=== PATIENT | male | born 1960 | race Caucasian/White ===

== ENCOUNTER 2019-01-13 15:32 | Inpatient (IN) ==
[2019-01-13] MEDS ORDERED: ACETAMINOPHEN 325 MG TABLET PO PRN (17:43)
[2019-01-13] MEDS ORDERED: PNEUMOCOCCAL VACCINE (23 VALENT) 0.5 ML VIAL IM ONE (17:43)
[2019-01-13] MEDS ORDERED: ALBUTEROL 2.5 MG/3 ML NEB RESP TX PRN (17:43)
[2019-01-13] MEDS ORDERED: ONDANSETRON 4 MG/2 ML VIAL IV PRN (17:43)
[2019-01-13 18:15] LABS: Basophils # 0.1 10*3/uL (0.0-0.2); Basophils % 0.6 % (0.0-0.8); Eosinophils # 0.3 10*3/uL (0.0-0.87); Eosinophils % 2.8 % (0.00-10.9); Hematocrit 39.4 VOL% (42.0-52.0); Hemoglobin 12.3 GM/DL (14.0-18.0); Immature Granulocytes % 0.6 %; Immature Granulocytes Absolute 0.06 #; Lymphocytes # 2.2 10*3/uL (1.4-4.0); Lymphocytes % 22.4 % (21.2-54.2); Mean Corpuscular HGB Conc 31.2 GM/DL (32-36); Mean Corpuscular Volume 96.3 FL (87-102); Mean Platelet Volume 11.8 FL (9.6-12.0); Neutrophils % 65.6 % (38.7-73.9); Platelet Count 205 T/CUMM (130-400); Red Blood Count 4.09 MC/CUMM (3.8-5.5); Red Cell Distribution Width 14.4 % (9.3-17.3)
[2019-01-13] MEDS: CLINDAMYCIN 300 MG CAPSULE PO SCH (18:31)
[2019-01-13] MEDS ORDERED: HydrOXYzine PAMOATE 50 MG CAPSULE PO PRN (18:32)
[2019-01-13 18:37] LABS: Alanine Aminotransferase 22 U/L (16-61); Albumin 3.3 G/DL (3.4-5.0); Alkaline Phosphatase 211 U/L (45-117); Aspartate Amino Transferase 15 U/L (0-37); Bilirubin,Total < 0.39 MG/DL (0.2-1.0); Blood Urea Nitrogen 10 MG/DL (7-18); Calcium 10.3 MG/DL (8.5-10.1); Glucose 91 MG/DL (74-106); Osmolality,Calculated 273.7 MOS/KG (273-304); Total Protein 6.5 G/DL (6.4-8.3)
[2019-01-13] MEDS: ALBUTEROL/IPRATROPIUM 3 ML NEB RESP TX SCH (19:03)
[2019-01-13] MEDS: MORPHINE ER 15 MG TABLET PO SCH (20:12)
[2019-01-13] MEDS: AMITRIPTYLINE 100 MG TABLET PO SCH (20:13)
[2019-01-13] MEDS: CILOSTAZOL 100 MG TABLET PO SCH (20:13)
[2019-01-13] MEDS: levETIRAcetam 500 MG TABLET PO SCH (20:13)
[2019-01-13] MEDS: GABAPENTIN 600 MG TABLET PO SCH (20:13)
[2019-01-13] MEDS: MEROPENEM 1,000 MG in SODIUM CHLORIDE 0.9% 100 ML IV SCH (20:14)
[2019-01-14] MEDS: CLINDAMYCIN 300 MG CAPSULE PO SCH ×2 (00:31→05:44)
[2019-01-14] MEDS: ALBUTEROL/IPRATROPIUM 3 ML NEB RESP TX SCH ×4 (01:17→19:17)
[2019-01-14] MEDS: MEROPENEM 1,000 MG in SODIUM CHLORIDE 0.9% 100 ML IV SCH ×3 (03:05→20:54)
[2019-01-14] MEDS: oxyCODONE/ACETAMINOPHEN 5-325 MG TABLET PO PRN ×2 (05:55→09:26)
[2019-01-14] MEDS ORDERED: CLOPIDOGREL 75 MG TABLET PO SCH (09:00)
[2019-01-14] MEDS: MULTIVITAMIN (CENTRUM) TABLET PO SCH (09:18)
[2019-01-14] MEDS: levETIRAcetam 500 MG TABLET PO SCH ×2 (09:19→17:10)
[2019-01-14] MEDS: GABAPENTIN 600 MG TABLET PO SCH ×3 (09:19→20:54)
[2019-01-14] MEDS: CETIRIZINE 10 MG TABLET PO SCH (09:19)
[2019-01-14] MEDS: PANTOPRAZOLE 40 MG TABLET PO SCH (09:19)
[2019-01-14] MEDS: CILOSTAZOL 100 MG TABLET PO SCH (09:19)
[2019-01-14] MEDS: METOPROLOL SUCCINATE XL 25 MG TABLET PO SCH (09:19)
[2019-01-14] MEDS: ASPIRIN EC 81 MG TABLET PO SCH (09:19)
[2019-01-14] MEDS ORDERED: AMINOPHYLLINE 250 MG in SODIUM CHLORIDE 0.9% 100 ML IV ONE (10:27)
[2019-01-14] MEDS: BUDESONIDE/FORMOTEROL 160-4.5 INHALER 6 GM INH SCH (10:37)
[2019-01-14] MEDS: RACEPINEPHRINE 0.5 ML NEB RESP TX SCH ×3 (10:45→19:17)
[2019-01-14 10:53] LABS: ABG Base Excess 3.7 MMOL/L (-2.5-2.5); ABG HCO3 27.5 MMOL/L (20-26); ABG Oxygen Saturation 85.4 % (95-100); ABG PCO2 54.4 MM HG (35-48); ABG PH 7.358 (7.35-7.45); ABG PO2 53.1 MM HG (80-95); ABG TCO2 27.2 MMOL/L (23-27)
[2019-01-14] MEDS ORDERED: NICOTINE 21 MG/24 HR PATCH TRANSDERM PRN (11:28)
[2019-01-14 11:39] LABS: Free T4 (Free Thyroxine) 0.85 NG/DL (0.76-1.46); Thyroid Stimulating Hormone 2.11 uIU/ml (0.358-3.74)
[2019-01-14] MEDS: MONTELUKAST 10 MG TABLET PO SCH (12:35)
[2019-01-14] MEDS: methylPREDNISolone SOD SUC 40 MG/1 ML VIAL IV SCH ×2 (12:36→21:49)
[2019-01-14] MEDS: CLINDAMYCIN INJ 300 MG in PREMIX 1 EACH IV SCH ×2 (12:36→17:10)
[2019-01-14] MEDS: METHOCARBAMOL 500 MG TABLET PO PRN ×2 (14:50→21:49)
[2019-01-14] MEDS: AMINOPHYLLINE 500 MG in SODIUM CHLORIDE 0.9% 480 ML IV SCH (15:23)
[2019-01-14 15:59] LABS: Total Protein 6.2 G/DL (6.4-8.3)
[2019-01-14] MEDS: ATORVASTATIN 80 MG TABLET PO SCH (17:10)
[2019-01-14] MEDS: TAMSULOSIN 0.4 MG CAPSULE PO SCH (17:10)
[2019-01-14] MEDS: AMITRIPTYLINE 100 MG TABLET PO SCH (20:53)
[2019-01-14] MEDS: MORPHINE ER 15 MG TABLET PO SCH (20:54)
[2019-01-15] MEDS: CLINDAMYCIN INJ 300 MG in PREMIX 1 EACH IV SCH ×5 (00:59→23:14)
[2019-01-15] MEDS: ALBUTEROL/IPRATROPIUM 3 ML NEB RESP TX SCH ×4 (01:24→19:30)
[2019-01-15 05:55] LABS: Basophils % 0.2 % (0.0-0.8); Eosinophils % 0.1 % (0.00-10.9); Hematocrit 39.1 VOL% (42.0-52.0); Immature Granulocytes % 0.3 %; Immature Granulocytes Absolute 0.03 #; Lymphocytes # 0.5 10*3/uL (1.4-4.0); Lymphocytes % 5.5 % (21.2-54.2); Mean Corpuscular HGB Conc 30.7 GM/DL (32-36); Mean Platelet Volume 12.8 FL (9.6-12.0); Monocytes % 1.1 % (1.7-12.7); Neutrophils % 92.8 % (38.7-73.9); Platelet Count 207 T/CUMM (130-400); Red Blood Count 4.03 MC/CUMM (3.8-5.5); Red Cell Distribution Width 14.3 % (9.3-17.3); White Blood Count 9.4 T/CUMM (4-12)
[2019-01-15 06:16] LABS: Bilirubin,Total 0.6 MG/DL (0.2-1.0); Calcium 9.9 MG/DL (8.5-10.1); Osmolality,Calculated 277.5 MOS/KG (273-304); Total Protein 6.3 G/DL (6.4-8.3)
[2019-01-15 06:54] LABS: Hypochromasia 1+; Lymphocytes 9 % (20-55); Segmented Neutrophils 88 % (50-85); Total Cells Counted 100
[2019-01-15 06:55] LABS: Macrocytosis Slight; Platelet Estimate Normal
[2019-01-15] MEDS: RACEPINEPHRINE 0.5 ML NEB RESP TX SCH ×6 (07:53→19:30)
[2019-01-15] MEDS: MEROPENEM 1,000 MG in SODIUM CHLORIDE 0.9% 100 ML IV SCH ×3 (08:23→20:48)
[2019-01-15] MEDS: METOPROLOL SUCCINATE XL 25 MG TABLET PO SCH (08:24)
[2019-01-15] MEDS: GABAPENTIN 600 MG TABLET PO SCH ×3 (08:24→20:48)
[2019-01-15] MEDS: MONTELUKAST 10 MG TABLET PO SCH (08:24)
[2019-01-15] MEDS: levETIRAcetam 500 MG TABLET PO SCH ×2 (08:24→17:07)
[2019-01-15] MEDS: METHOCARBAMOL 500 MG TABLET PO PRN ×3 (08:25→20:48)
[2019-01-15] MEDS: PANTOPRAZOLE 40 MG TABLET PO SCH (08:25)
[2019-01-15] MEDS: ASPIRIN EC 81 MG TABLET PO SCH (08:25)
[2019-01-15] MEDS: methylPREDNISolone SOD SUC 40 MG/1 ML VIAL IV SCH ×3 (08:25→23:14)
[2019-01-15] MEDS: MULTIVITAMIN (CENTRUM) TABLET PO SCH ×2 (08:28→08:34)
[2019-01-15] MEDS: CETIRIZINE 10 MG TABLET PO SCH ×2 (08:28→08:34)
[2019-01-15] MEDS: BUDESONIDE/FORMOTEROL 160-4.5 INHALER 6 GM INH SCH (08:28)
[2019-01-15 08:38] LABS: Immunoglobulin A (Chem) 239 MG/DL (70-400); Immunoglobulin G (Chem) 465 MG/DL (700-1600); Immunoglobulin M (Chem) 30 MG/DL (40-230); Total Protein (Chem) 6.2 G/DL (6.4-8.3)
[2019-01-15 09:23] LABS: Albumin (SPE) 3.9 G/DL (3.2-5.3); Albumin (SPE) Rel % 62.3 %; Alpha 1 (SPE) 0.3 G/DL (0.1-0.4); Alpha 1 (SPE) Rel % 4.7 %; Alpha 2 (SPE) 0.9 G/DL (0.4-1.0); Alpha 2 (SPE) Rel % 14.7 %; Beta (SPE) 0.8 G/DL (0.5-1.1); Beta (SPE) Rel % 12.3 %; Gamma (SPE) 0.4 G/DL (0.7-1.7)
[2019-01-15 11:34] LABS: Carcinoembryonic Antigen 4.3 NG/ML (0.0-5.0); Prostate Specific Antigen Diag 0.4 NG/ML (0-4)
[2019-01-15] MEDS: AMINOPHYLLINE 500 MG in SODIUM CHLORIDE 0.9% 480 ML IV SCH (14:20)
[2019-01-15] MEDS: TAMSULOSIN 0.4 MG CAPSULE PO SCH (17:07)
[2019-01-15] MEDS: ATORVASTATIN 80 MG TABLET PO SCH (17:07)
[2019-01-15] MEDS: THEOPHYLLINE ER (24 HR) 400 MG CAPSULE PO SCH (17:07)
[2019-01-15] MEDS: AMITRIPTYLINE 100 MG TABLET PO SCH (20:49)
[2019-01-15] MEDS: MORPHINE ER 15 MG TABLET PO SCH (20:49)
[2019-01-15] MEDS: oxyCODONE/ACETAMINOPHEN 5-325 MG TABLET PO PRN (20:49)
[2019-01-16] MEDS: ALBUTEROL/IPRATROPIUM 3 ML NEB RESP TX SCH ×4 (01:30→19:11)
[2019-01-16] MEDS: MEROPENEM 1,000 MG in SODIUM CHLORIDE 0.9% 100 ML IV SCH ×3 (04:51→20:39)
[2019-01-16] MEDS: CLINDAMYCIN INJ 300 MG in PREMIX 1 EACH IV SCH ×4 (05:17→23:30)
[2019-01-16 05:18] LABS: Basophils % 0.2 % (0.0-0.8); Eosinophils % 0.1 % (0.00-10.9); Hematocrit 39.3 VOL% (42.0-52.0); Hemoglobin 12.1 GM/DL (14.0-18.0); Immature Granulocytes % 0.6 %; Immature Granulocytes Absolute 0.06 #; Lymphocytes # 0.6 10*3/uL (1.4-4.0); Mean Corpuscular HGB Conc 30.8 GM/DL (32-36); Mean Corpuscular Volume 96.6 FL (87-102); Mean Platelet Volume 12.5 FL (9.6-12.0); Monocytes % 2.9 % (1.7-12.7); Neutrophils % 90.2 % (38.7-73.9); Platelet Count 197 T/CUMM (130-400); Red Blood Count 4.07 MC/CUMM (3.8-5.5); Red Cell Distribution Width 14.4 % (9.3-17.3); White Blood Count 10.1 T/CUMM (4-12)
[2019-01-16 05:41] LABS: Calcium 10.2 MG/DL (8.5-10.1); Osmolality,Calculated 277.5 MOS/KG (273-304)
[2019-01-16] MEDS: RACEPINEPHRINE 0.5 ML NEB RESP TX SCH ×4 (08:15→19:11)
[2019-01-16 08:56] LABS: Levetiracetam (Keppra) 22.5 mcg/mL
[2019-01-16] MEDS: METHOCARBAMOL 500 MG TABLET PO PRN ×3 (09:07→20:38)
[2019-01-16] MEDS: oxyCODONE/ACETAMINOPHEN 5-325 MG TABLET PO PRN ×3 (09:07→20:39)
[2019-01-16] MEDS: PANTOPRAZOLE 40 MG TABLET PO SCH (09:07)
[2019-01-16] MEDS: levETIRAcetam 500 MG TABLET PO SCH ×2 (09:07→17:03)
[2019-01-16] MEDS: GABAPENTIN 600 MG TABLET PO SCH ×3 (09:07→20:38)
[2019-01-16] MEDS: methylPREDNISolone SOD SUC 40 MG/1 ML VIAL IV SCH ×3 (09:07→23:29)
[2019-01-16] MEDS: CETIRIZINE 10 MG TABLET PO SCH (09:07)
[2019-01-16] MEDS: MONTELUKAST 10 MG TABLET PO SCH (09:07)
[2019-01-16] MEDS: MULTIVITAMIN (CENTRUM) TABLET PO SCH (09:07)
[2019-01-16] MEDS: METOPROLOL SUCCINATE XL 25 MG TABLET PO SCH (09:07)
[2019-01-16 09:31] LABS: Total Volume,Urine 5000 ML (400-2000)
[2019-01-16] MEDS: BUDESONIDE/FORMOTEROL 160-4.5 INHALER 6 GM INH SCH (09:49)
[2019-01-16] MEDS: ASPIRIN EC 81 MG TABLET PO SCH (09:49)
[2019-01-16 10:00] LABS: Total Protein 24 Hr Ur Result 400 MG/24HR (0-149.1)
[2019-01-16 10:21] LABS: Procalcitonin, S < 0.10 ng/mL (<=0.15)
[2019-01-16] MEDS: ATORVASTATIN 80 MG TABLET PO SCH (17:03)
[2019-01-16] MEDS: TAMSULOSIN 0.4 MG CAPSULE PO SCH (17:03)
[2019-01-16] MEDS: THEOPHYLLINE ER (24 HR) 400 MG CAPSULE PO SCH (17:03)
[2019-01-16] MEDS: AMITRIPTYLINE 100 MG TABLET PO SCH (20:38)
[2019-01-16] MEDS: MORPHINE ER 15 MG TABLET PO SCH (20:38)
[2019-01-17] MEDS: ALBUTEROL/IPRATROPIUM 3 ML NEB RESP TX SCH ×4 (01:55→19:04)
[2019-01-17] MEDS: MEROPENEM 1,000 MG in SODIUM CHLORIDE 0.9% 100 ML IV SCH ×3 (05:13→20:30)
[2019-01-17] MEDS: CLINDAMYCIN INJ 300 MG in PREMIX 1 EACH IV SCH ×4 (05:25→23:10)
[2019-01-17 05:26] LABS: Basophils % 0.3 % (0.0-0.8); Eosinophils % 0.1 % (0.00-10.9); Hematocrit 41.8 VOL% (42.0-52.0); Hemoglobin 12.8 GM/DL (14.0-18.0); Immature Granulocytes % 0.4 %; Immature Granulocytes Absolute 0.04 #; Lymphocytes # 0.7 10*3/uL (1.4-4.0); Lymphocytes % 6.4 % (21.2-54.2); Mean Corpuscular HGB Conc 30.6 GM/DL (32-36); Mean Corpuscular Volume 97.2 FL (87-102); Mean Platelet Volume 12.6 FL (9.6-12.0); Neutrophils % 89.8 % (38.7-73.9); Platelet Count 218 T/CUMM (130-400); Red Cell Distribution Width 14.4 % (9.3-17.3)
[2019-01-17 05:56] LABS: Calcium 10.6 MG/DL (8.5-10.1); Osmolality,Calculated 277.5 MOS/KG (273-304)
[2019-01-17] MEDS: RACEPINEPHRINE 0.5 ML NEB RESP TX SCH ×4 (07:52→19:04)
[2019-01-17] MEDS: MULTIVITAMIN (CENTRUM) TABLET PO SCH (08:17)
[2019-01-17] MEDS: CETIRIZINE 10 MG TABLET PO SCH (08:17)
[2019-01-17] MEDS: oxyCODONE/ACETAMINOPHEN 5-325 MG TABLET PO PRN ×3 (08:17→20:32)
[2019-01-17] MEDS: ASPIRIN EC 81 MG TABLET PO SCH (08:17)
[2019-01-17] MEDS: PANTOPRAZOLE 40 MG TABLET PO SCH (08:17)
[2019-01-17] MEDS: GABAPENTIN 600 MG TABLET PO SCH ×3 (08:17→20:31)
[2019-01-17] MEDS: METOPROLOL SUCCINATE XL 25 MG TABLET PO SCH (08:17)
[2019-01-17] MEDS: levETIRAcetam 500 MG TABLET PO SCH ×2 (08:17→17:22)
[2019-01-17] MEDS: MONTELUKAST 10 MG TABLET PO SCH (08:17)
[2019-01-17] MEDS: METHOCARBAMOL 500 MG TABLET PO PRN ×3 (08:17→20:32)
[2019-01-17] MEDS: BUDESONIDE/FORMOTEROL 160-4.5 INHALER 6 GM INH SCH (09:18)
[2019-01-17] MEDS: MAGNESIUM HYDROXIDE SUSP 30 ML UDCUP PO PRN ×2 (11:05→20:30)
[2019-01-17] MEDS: methylPREDNISolone SOD SUC 40 MG/1 ML VIAL IV SCH ×2 (11:11→23:10)
[2019-01-17] MEDS: ATORVASTATIN 80 MG TABLET PO SCH (17:22)
[2019-01-17] MEDS: THEOPHYLLINE ER (24 HR) 400 MG CAPSULE PO SCH (17:23)
[2019-01-17] MEDS: TAMSULOSIN 0.4 MG CAPSULE PO SCH (17:23)
[2019-01-17] MEDS: MORPHINE ER 15 MG TABLET PO SCH (20:31)
[2019-01-17] MEDS: AMITRIPTYLINE 100 MG TABLET PO SCH (20:32)
[2019-01-18] MEDS: ALBUTEROL/IPRATROPIUM 3 ML NEB RESP TX SCH ×4 (00:05→19:40)
[2019-01-18 05:02] LABS: INR 0.9; PT Patient Result 10.2 SECS; Partial Thromboplastin Time 26.6 SECS (0-40)
[2019-01-18 05:11] LABS: Calcium 9.9 MG/DL (8.5-10.1); Osmolality,Calculated 281.3 MOS/KG (273-304)
[2019-01-18 05:13] LABS: Basophils # 0.1 10*3/uL (0.0-0.2); Basophils % 0.4 % (0.0-0.8); Eosinophils # 0.1 10*3/uL (0.0-0.87); Eosinophils % 0.4 % (0.00-10.9); Hematocrit 39.5 VOL% (42.0-52.0); Hemoglobin 12.1 GM/DL (14.0-18.0); Immature Granulocytes % 0.3 %; Immature Granulocytes Absolute 0.04 #; Lymphocytes # 0.8 10*3/uL (1.4-4.0); Lymphocytes % 7.2 % (21.2-54.2); Mean Corpuscular HGB Conc 30.6 GM/DL (32-36); Mean Corpuscular Volume 97.3 FL (87-102); Mean Platelet Volume 12.7 FL (9.6-12.0); Monocytes % 3.2 % (1.7-12.7); Neutrophils % 88.5 % (38.7-73.9); Platelet Count 215 T/CUMM (130-400); Red Blood Count 4.06 MC/CUMM (3.8-5.5); Red Cell Distribution Width 14.4 % (9.3-17.3); White Blood Count 11.5 T/CUMM (4-12)
[2019-01-18] MEDS: MEROPENEM 1,000 MG in SODIUM CHLORIDE 0.9% 100 ML IV SCH ×3 (05:20→21:13)
[2019-01-18] MEDS: CLINDAMYCIN INJ 300 MG in PREMIX 1 EACH IV SCH ×4 (05:21→23:16)
[2019-01-18] MEDS: RACEPINEPHRINE 0.5 ML NEB RESP TX SCH ×4 (07:28→19:40)
[2019-01-18] MEDS ORDERED: BENZONATATE 100 MG CAPSULE PO ONE (08:00)
[2019-01-18] MEDS ORDERED: MEPERIDINE 50 MG/1 ML VIAL IM ONE (08:00)
[2019-01-18] MEDS: ASPIRIN EC 81 MG TABLET PO SCH (08:00)
[2019-01-18] MEDS ORDERED: diphenhydrAMINE 50 MG/1 ML VIAL IM ONE (08:00)
[2019-01-18] MEDS: levETIRAcetam 500 MG TABLET PO SCH ×2 (08:10→18:03)
[2019-01-18] MEDS ORDERED: LIDOCAINE 2% 20 ML VIAL RESP TX ONE (08:30)
[2019-01-18] MEDS ORDERED: LIDOCAINE 1% 20 ML VIAL MISC INJ ONE (08:30)
[2019-01-18] MEDS ORDERED: LIDOCAINE 2% VISCOUS 100 ML BOTTLE SWISH/SPIT ONE (08:30)
[2019-01-18] MEDS ORDERED: MIDAZOLAM 2 MG/2 ML VIAL ONE (08:44)
[2019-01-18] MEDS: BUDESONIDE/FORMOTEROL 160-4.5 INHALER 6 GM INH SCH (09:00)
[2019-01-18] MEDS ORDERED: EPINEPHrine 1 MG/ML VIAL ET ONE ×4 (09:15→09:35)
[2019-01-18] MEDS ORDERED: EPINEPHrine 1 MG/ML VIAL ONE (09:31)
[2019-01-18] MEDS: methylPREDNISolone SOD SUC 40 MG/1 ML VIAL IV SCH ×2 (10:30→23:15)
[2019-01-18] MEDS: MONTELUKAST 10 MG TABLET PO SCH (13:16)
[2019-01-18] MEDS: CETIRIZINE 10 MG TABLET PO SCH (13:17)
[2019-01-18] MEDS: oxyCODONE/ACETAMINOPHEN 5-325 MG TABLET PO PRN ×2 (13:17→18:36)
[2019-01-18] MEDS: METOPROLOL SUCCINATE XL 25 MG TABLET PO SCH (13:17)
[2019-01-18] MEDS: GABAPENTIN 600 MG TABLET PO SCH ×3 (13:17→21:12)
[2019-01-18] MEDS: ATORVASTATIN 80 MG TABLET PO SCH (18:03)
[2019-01-18] MEDS: TAMSULOSIN 0.4 MG CAPSULE PO SCH (18:04)
[2019-01-18] MEDS: PANTOPRAZOLE 40 MG TABLET PO SCH (18:04)
[2019-01-18] MEDS: MULTIVITAMIN (CENTRUM) TABLET PO SCH (18:04)
[2019-01-18] MEDS: THEOPHYLLINE ER (24 HR) 400 MG CAPSULE PO SCH (18:04)
[2019-01-18] MEDS: MORPHINE ER 15 MG TABLET PO SCH (21:12)
[2019-01-18] MEDS: AMITRIPTYLINE 100 MG TABLET PO SCH (21:12)
[2019-01-18] MEDS: METHOCARBAMOL 500 MG TABLET PO PRN (23:51)
[2019-01-19] MEDS: ALBUTEROL/IPRATROPIUM 3 ML NEB RESP TX SCH ×3 (02:13→13:49)
[2019-01-19] MEDS: MEROPENEM 1,000 MG in SODIUM CHLORIDE 0.9% 100 ML IV SCH ×2 (03:47→12:29)
[2019-01-19 04:36] LABS: Basophils # 0.1 10*3/uL (0.0-0.2); Basophils % 0.5 % (0.0-0.8); Eosinophils # 0.1 10*3/uL (0.0-0.87); Eosinophils % 0.6 % (0.00-10.9); Hematocrit 40.8 VOL% (42.0-52.0); Hemoglobin 12.6 GM/DL (14.0-18.0); Immature Granulocytes % 0.6 %; Immature Granulocytes Absolute 0.06 #; Lymphocytes # 0.8 10*3/uL (1.4-4.0); Lymphocytes % 7.3 % (21.2-54.2); Mean Corpuscular HGB Conc 30.9 GM/DL (32-36); Mean Corpuscular Volume 96.2 FL (87-102); Mean Platelet Volume 12.6 FL (9.6-12.0); Platelet Count 217 T/CUMM (130-400); Red Blood Count 4.24 MC/CUMM (3.8-5.5); Red Cell Distribution Width 14.3 % (9.3-17.3); White Blood Count 10.5 T/CUMM (4-12)
[2019-01-19 05:06] LABS: Calcium 10.2 MG/DL (8.5-10.1); Osmolality,Calculated 279.4 MOS/KG (273-304)
[2019-01-19] MEDS: CLINDAMYCIN INJ 300 MG in PREMIX 1 EACH IV SCH ×2 (06:02→12:17)
[2019-01-19] MEDS: METHOCARBAMOL 500 MG TABLET PO PRN (06:05)
[2019-01-19] MEDS: oxyCODONE/ACETAMINOPHEN 5-325 MG TABLET PO PRN ×2 (06:05→12:24)
[2019-01-19] MEDS: RACEPINEPHRINE 0.5 ML NEB RESP TX SCH ×2 (07:19→13:49)
[2019-01-19] MEDS: METOPROLOL SUCCINATE XL 25 MG TABLET PO SCH (08:53)
[2019-01-19] MEDS: CETIRIZINE 10 MG TABLET PO SCH (08:53)
[2019-01-19] MEDS: levETIRAcetam 500 MG TABLET PO SCH (08:53)
[2019-01-19] MEDS: ASPIRIN EC 81 MG TABLET PO SCH (08:53)
[2019-01-19] MEDS: PANTOPRAZOLE 40 MG TABLET PO SCH (08:53)
[2019-01-19] MEDS: GABAPENTIN 600 MG TABLET PO SCH (08:53)
[2019-01-19] MEDS: MONTELUKAST 10 MG TABLET PO SCH (08:53)
[2019-01-19] MEDS: MULTIVITAMIN (CENTRUM) TABLET PO SCH (08:53)
[2019-01-19] MEDS: BUDESONIDE/FORMOTEROL 160-4.5 INHALER 6 GM INH SCH (08:54)
[2019-01-19 11:05] LABS: 24 Hr Protein (Bench) 400 MG/24HR (0-149.1)
[2019-01-19 12:05] VITALS: BP 112/72
[2019-01-19] MEDS: methylPREDNISolone SOD SUC 40 MG/1 ML VIAL IV SCH (12:17)
[2019-01-19] MEDS ORDERED: CILOSTAZOL 100 MG TABLET PO SCH (21:00)
[2019-01-20] MEDS ORDERED: CLOPIDOGREL 75 MG TABLET PO SCH (09:00)
== END 2019-01-19 14:45 | disposition home or self-care (01) | DRG 166 ==
LOC: N.5E 16:27 → SUATTDRO 16:27 → N.5E 01-18 08:02
PROVIDERS: ADMIT Internal Medicine; ATTEND Internal Medicine